=== PATIENT | female | born 1955 | race Caucasian/White ===

== ENCOUNTER → 2018-04-27 | Day surgery (SDC) | payer OTHER ==
[~2018-04-27] VITALS: Ht 165.1 cm; Wt 54.4 kg
--- NOTE | 2018-04-27 08:22 | Operative Report ---
Operative/Inv Procedure Report Surgery Date: 04/27/18 Name of Procedure: urethral sling, cysto Pre-Operative Diagnosis: stress incontinence Post-Operative Diagnosis: same Estimated Blood Loss: less than 50ml Surgeon/Cleaning Maid: Rubia Bravo MD Anesthesia: local monitored anesthesi Implants: vaginal mesh Complications: none Condition: stable Operative Indication: stress incontinence Operative/Procedure Note Note: 62-year-old female with a history of stress urinary incontinence that is bothersome. She was given the option of urethral sling and given the risks, and benefits, and alternatives. All questions were answered. This was done in the office as well as in the holding area. Consent was signed. Patient was taken to the operating room placed on the operating table in the supine position. Timeout was performed. SCDs were placed. Kefzol 2gm IV antibiotics was infused. She was placed in the dorsolithotomy position and IV sedation was already started. She was prepped and draped in the standard sterile fashion. Wise catheter was placed and the bladder was drained. Since retractor was placed and 1% lidocaine was infiltrated into the anterior vaginal wall beneath the urethra. An incision was made approximately 2 inches in length beneath the urethra. Care was taken not to injure the urethra. The vaginal flaps were created taking care not to injure the urethra with sharp dissection with the Metzenbaum scissors. Once dissection was complete, the Altis sling kit was then opened. The trochars provided were used to place the sling first in the left side than the right side. The vaginal first fornices were not pierced by the trochars. The sling was seen to be in good position and it was tightened in a tension-free manner with a DeBakey between the urethra and the sling. Area was grossly irrigated with bacitracin irrigation. The tightening Prolene suture was then cut. Incision was closed with a running locking 3-0 Vicryl every third suture. There is no mesh in the vaginal fornices. Wise catheter was removed and a cystoscopy was performed. The bladder was globally inspected. There was no mesh in the bladder or the urethra. The bladder anatomy was within normal limits and in ureteral orifices were in their normal anatomic location. The bladder was emptied. The vagina was packed with 2 inch vaginal packing impregnated with bacitracin ointment. Sponge and needle count were correct at the end of the case. She was transferred to the recovery room stable condition. Findings: no mesh in the bladder, urethra or vaginal fornices Discharge Disposition: Same Day Admissions
== END ==
LOC: STS 01:42
DX: N39.3 Stress incontinence (female) (male) (principal); R39.14 Feeling of incomplete bladder emptying; N95.2 Postmenopausal atrophic vaginitis; N81.10 Cystocele, unspecified; K21.9 Gastro-esophageal reflux disease without esophagitis
CPT/HCPCS: C1771; J0131; J0690; J2250; J3490